=== PATIENT | female | born 1995 | race Caucasian/White ===

== ENCOUNTER 2018-07-23 11:25 | Emergency (ER) | payer MEDICAID ==
[~2018-07-23] VITALS: Ht 165.1 cm; Wt 107.6 kg
[~2018-07-23 11:25] MED LIST: LAMO25TA4; none reported
[2018-07-23 12:40] LABS: BASOPHILS % 0.4 % (0.0-2.0); EOSINOPHILS % 1.4 % (0.0-5.0); HEMATOCRIT. 39.8 % (36.0-48.0); HEMOGLOBIN. 13.5 g/dL (12.0-16.0); LYMPHOCYTES % 20.4 % (20.0-50.0); MEAN CORPUSCULAR HEMOGLOBIN 28.2 pg (28.0-32.0); MEAN CORPUSCULAR VOLUME 83.3 fL (81.0-99.0); MEAN PLATELET VOLUME 6.4 fl (7.4-10.4); MONOCYTES % 5.7 % (2.0-8.0); NEUTROPHILS % 72.1 % (40.0-76.0); PLATELET 460 x1000/uL (130-400); RED BLOOD CELL COUNT 4.78 mill/uL (4.2-5.4); RED CELL DISTRIBUTION WIDTH 14.3 % (11.6-14.6)
[2018-07-23 12:42] LABS: CHLORIDE 104 mEq/L (98-107)
[2018-07-23 12:51] LABS: INR 1.1; PROTHROMBIN TIME 10.7 sec (9.1-11.1)
[2018-07-23] MEDS ORDERED: KETOROLAC 30MG/ML VIAL IV ONE (14:00)
[2018-07-23 15:13] VITALS: BP 118/73
== END 2018-07-23 15:17 | disposition home or self-care (01) ==
LOC: ER 11:52
DX: K80.20 Calculus of gallbladder without cholecystitis without obstruction (principal); K76.0 Fatty (change of) liver, not elsewhere classified; F41.9 Anxiety disorder, unspecified; K21.9 Gastro-esophageal reflux disease without esophagitis
CPT/HCPCS: 36415; 76705; 80053; 81025; 83690; 85025; 85610; 96374; 99285; J1885

== ENCOUNTER 2021-05-04 03:34 | Emergency (ER) | payer MEDICAID ==
[~2021-05-04] VITALS: Ht 165.1 cm; Wt 112.0 kg
[~2021-05-04 03:34] MED LIST changes: -LAMO25TA4; +LAMO25TA9
[2021-05-04] MEDS ORDERED: MORPHINE SULFATE 4 MG/ML CPJ (NOT FOR IM USE) IV ONE (04:45)
[2021-05-04 06:11] LABS: HCG SCREEN NEGATIVE
[2021-05-04] MEDS ORDERED: CYCL10TA7 MT (07:39)
[2021-05-04] MEDS ORDERED: IBUP-2029 MT (07:39)
[2021-05-04 08:00] VITALS: BP 130/74
== END 2021-05-04 08:11 | disposition home or self-care (01) ==
LOC: ER 03:34
DX: S09.8XXA Other specified injuries of head, initial encounter (principal); R07.89 Other chest pain; G40.909 Epilepsy, unspecified, not intractable, without status epilepticus; F41.9 Anxiety disorder, unspecified; V49.9XXA Car occupant (driver) (passenger) injured in unspecified traffic accident, initial encounter; Y93.9 Activity, unspecified; Y92.9 Unspecified place or not applicable; Z87.442 Personal history of urinary calculi
CPT/HCPCS: 70450; 70486; 71045; 84703; 96374; 99285; J2270

== ENCOUNTER 2023-03-02 00:52 | Emergency (ER) | payer MEDICAID ==
[~2023-03-02] VITALS: Ht 165.1 cm; Wt 113.5 kg
[~2023-03-02 00:52] MED LIST changes: +CYCL10TA21 MT; +IBUP-2029 MT
[2023-03-02 02:02] LABS: CLARITY URINE CLEAR (CLEAR); COLOR URINE YELLOW (YELLOW); KETONES URINE NEGATIVE (NEGATIVE); LEUKOCYTE ESTERASE URINE TRACE (NEGATIVE); NITRITE URINE NEGATIVE (NEGATIVE); OCCULT BLOOD URINE TRACE (NEGATIVE); PH URINE 5.5 (4.5-8.0); PROTEIN URINE NEGATIVE (NEGATIVE); SPECIFIC GRAVITY URINE 1.012 (1.005-1.030); UROBILINOGEN URINE 0.2 E.U./dL (0.2-1.0)
[2023-03-02] MEDS ORDERED: PHEN-909 MT (04:27)
[2023-03-02] MEDS ORDERED: CEPH500C2 MT (04:27)
[2023-03-02] MEDS ORDERED: KETOROLAC 30MG/ML VIAL IM ONE (04:30)
[2023-03-02 04:41] VITALS: BP 128/66
== END 2023-03-02 04:42 | disposition home or self-care (01) ==
LOC: ER 00:52
DX: N39.0 Urinary tract infection, site not specified (principal); Z90.49 Acquired absence of other specified parts of digestive tract; Z86.59 Personal history of other mental and behavioral disorders
CPT/HCPCS: 81003; 81025; 96372; 99283; J1885; Z7610

== ENCOUNTER 2023-03-14 01:29 | Emergency (ER) | payer MEDICAID ==
[~2023-03-14] VITALS: Ht 165.1 cm; Wt 118.5 kg
[~2023-03-14 01:29] MED LIST changes: +CEPH500C2 MT; +PHEN-909 MT
[2023-03-14 01:34] VITALS: O2SAT 99
[2023-03-14 01:36] VITALS: BP 119/66
[2023-03-14 02:00] VITALS: PULSE 79; RESP 17; TEMP 98.4
[2023-03-14] MEDS ORDERED: OFLO5DRO4 LEFT EAR (02:01)
== END 2023-03-14 02:00 | disposition home or self-care (01) ==
LOC: ER 01:29
DX: H72.92 Unspecified perforation of tympanic membrane, left ear (principal)
CPT/HCPCS: 69200; 99283; 99284

== ENCOUNTER 2025-05-20 19:13 | Emergency (ER) | payer MEDICAID ==
[~2025-05-20] VITALS: Ht 162.6 cm; Wt 107.0 kg
[~2025-05-20 19:13] MED LIST changes: +LAMO-21; -LAMO25TA9; +OFLO5DRO4 LEFT EAR
[2025-05-20 19:36] VITALS: TEMP 36.8; O2SAT 97
[2025-05-20 20:03] LABS: BASOPHILS % 0.3 % (0.0-2.0); EOSINOPHILS % 0.3 % (0.0-5.0); HEMATOCRIT. 40.8 % (36.0-48.0); HEMOGLOBIN. 14.2 g/dL (12.0-16.0); LYMPHOCYTES % 14.4 % (20.0-50.0); MEAN PLATELET VOLUME 6.6 fl (7.4-10.4); MONOCYTES % 3.8 % (2.0-8.0); NEUTROPHILS % 81.2 % (40.0-76.0); PLATELET 588 x1000/uL (130-400); RED BLOOD CELL COUNT 4.74 mill/uL (4.2-5.4); RED CELL DISTRIBUTION WIDTH 14.3 % (11.6-14.6)
[2025-05-20 20:13] LABS: CREATININE 1.1 mg/dL (0.6-1.0); UREA NITROGEN BLOOD 8.0 mg/dL (9-23)
[2025-05-20 21:01] LABS: HCG SCREEN NEGATIVE
[2025-05-20 21:32] LABS: ASPARTATE AMINOTRANSFERASE 26 IU/L (<34); BILIRUBIN DIRECT 0.3 mg/dL (<=3.0); BILIRUBIN TOTAL 0.8 mg/dL (0.1-1.0); PROTEIN TOTAL 8.9 g/dL (6.0-8.3)
[2025-05-20] MEDS: HYDROCODONE/ACETAMINOPHEN 5/325MG TABLET PO ONE (22:16)
[2025-05-20] MEDS: ONDANSETRON 4MG ODT PO ONE (22:16)
[2025-05-20] MEDS: MORPHINE SULFATE 4 MG/ML INJ (FOR IV/IM USE) IM ONE (23:50)
[2025-05-21] MEDS ORDERED: ACET-2708 MT (00:36)
[2025-05-21] MEDS ORDERED: FAMO-135 MT (00:36)
[2025-05-21 01:28] VITALS: BP 125/84; PULSE 70; RESP 16; O2SAT 97
== END 2025-05-21 01:31 | disposition home or self-care (01) ==
LOC: ER 19:15
DX: K80.20 Calculus of gallbladder without cholecystitis without obstruction (principal); K76.0 Fatty (change of) liver, not elsewhere classified; Z90.49 Acquired absence of other specified parts of digestive tract; G40.909 Epilepsy, unspecified, not intractable, without status epilepticus; Z79.899 Other long term (current) drug therapy
CPT/HCPCS: 99284; 76705; 80076; 80048; 84703; 83690; 85025; 36415; Q0162; J2270